=== PATIENT | male | born 1960 | race Caucasian/White ===

== ENCOUNTER 2025-11-14 08:50 | Emergency (ER) | payer MEDICARE, SELFPAY ==
[2025-11-14 08:59] VITALS: BP 146/88; PULSE 80; RESP 16; TEMP 36.6; O2SAT 96
--- NOTE | 2025-11-14 13:02 | NUR.NOTE ---
Nursing Note: Per Ashwini at [facility] had not yet received the prescription that was sent hours ago. Unable to reach the Pharmacy, everytime I call they immediately put me on hold for 15+ minutes. Called [facility] in [facility] and spoke with Maryann Kirk who can see that the prescription for Keppra was received at [place]. They do not accept GoodRx coupons but he was able to run it at [facility] for a total of $15.09 due at [facility]. Called [facility] and gave them the updated total to call [place] [facility] to pay. Patient was sent with a [facility] card to give to the pharmacist if they had not yet been reached to pay the bill as it has been difficult to reach them.
--- NOTE | 2025-11-14 15:18 | W.ED.GENAD ---
Discharge Plan Disposition Patient Disposition: Home Condition: Stable Discharge Details Clinical Impression: Medication administered in error Primary Care Provider: Lucas Ervin ED Provider: Bibi Leung Home Meds and New Rx's Prescriptions: New levetiracetam [Keppra] 500 mg tablet 500 mg PO BID Qty: 60 0RF Continued levetiracetam 500 mg tablet 500 mg PO BID Patient Comments: TAKE 1 TABLET BY MOUTH TWICE DAILY Discharge Instructions Additional Instructions: Take Keppra as prescribed, I have given you a coupon, bring this to [facility] in [place] Please return earlier should you have new or worsening complaints Stand Alone Forms: Portal Information Referrals: Lucas Ervin [Primary Care Provider, Medicine] Discharge Data Discharge Date/Time-TO BE ENTERED AT DEPARTURE: 11/14/25 13:02 HPI General Date/Time Provider Initiated Documentation: 11/14/25 09:16. HPI Narrative: This 65-year-old male with history of seizures and brain injury presents with report of history of seizures. Presents with report of being unable to afford his Keppra. Patient was placed in touch with [facility]. He has not had a seizure and was able to take his dose of Keppra this morning. His doctor is able to fill his prescription the following month but as he is currently homeless and in our area, they were unable to assist this month reportedly. He denies any additional complaints at this time. Related Data Home Medications ?Medication ?Instructions ?Recorded ?Confirmed levetiracetam 500 mg tablet 500 mg PO BID 11/14/25 11/14/25 levetiracetam 500 mg tablet 500 mg PO BID #60 tabs 11/14/25 (Keppra) Previous Rx's ?Medication ?Instructions ?Recorded levetiracetam 500 mg tablet 500 mg PO BID #60 tabs 11/14/25 (Keppra) General Stated Complaint: RX Refill JOSE: 5 Exam Narrative Exam Narrative: Alert and oriented, no acute distress, answering questions grossly nonfocal neurological exam Course Vital Signs Vital signs: Vital Signs Temperature 36.6 C 11/14/25 08:59 Pulse 80 11/14/25 08:59 Respiratory Rate 16 11/14/25 08:59 Blood Pressure 146/88 H 11/14/25 08:59 Pulse Oximetry 96 11/14/25 08:59 Temperature 36.6 C 11/14/25 08:59 Temperature Source Oral 11/14/25 08:59 Pulse 80 11/14/25 08:59 Respiratory Rate 16 11/14/25 08:59 Blood Pressure 146/88 H 11/14/25 08:59 Pulse Oximetry 96 11/14/25 08:59 Oxygen Delivery Method Room Air 11/14/25 08:59 Oxygen Flow Rate 0 11/14/25 08:59 Medical Decision Making Assessment and plan: Patient in no acute distress, answering questions appropriately, given resources with [facility] who are able to give patient a voucher for his Keppra prescription which will be filled today. Patient is encouraged to follow-up with his primary care physician and return earlier should he have new or worsening complaints. No seizure-like activity or additional concerns noted throughout this assessment today. PFSH All Active Problems (Updated 11/14/25 @ 10:55 by LEXI Henriquez) Medication administered in error (Acute) Social History Smoking/Tobacco Use Status: Current every day Smoking risk assessment performed?: Yes Alcohol Intake: former Substance use type: marijuana
== END 2025-11-14 13:02 | disposition home or self-care (01) ==
PROVIDERS: Emergency Provider Physician Assistant; PCP Family Medicine
DX: Z76.0 Encounter for issue of repeat prescription (principal); Z86.69 Personal history of other diseases of the nervous system and sense organs; Z59.00 Homelessness unspecified
CPT/HCPCS: 99283 ×2